=== PATIENT | male | born 1970 | race Native Hawaiian/Other Pacific Islander ===

== ENCOUNTER 2022-01-23 06:58 | Outpatient (CLI) | payer OTHER ==
[~2022-01-23] VITALS: Ht 175.3 cm; Wt 118.2 kg
[~2022-01-23 06:58] MED LIST: ASPIRIN 81M81 MG/TA2 PO; BIKTARVY 50-201 EACH PO; COZAAR 50MG50 MG/TAB PO; NAPROSYN500 MG PO; SMZ/TMPDS PO
[2022-01-23 07:25] VITALS: BP 156/88; PULSE 99; TEMP 97.9
[2022-01-23 08:45] VITALS: BP 126/80; PULSE 92
[2022-01-23 09:00] VITALS: BP 114/74; PULSE 93
[2022-01-23 09:14] LABS: CSF COLOR COLORLESS
[2022-01-23 09:15] VITALS: BP 115/66; PULSE 92
[2022-01-23 09:15] LABS: CSF APPEARANCE CLEAR; CSF RBC 38 /mm3 (0-0)
[2022-01-23 09:30] VITALS: BP 111/77; PULSE 89
[2022-01-23 09:31] LABS: GLUCOSE,CSF 40 mg/dL (40-70); TOTAL PROTEIN,CSF 50 mg/dL (15-45)
[2022-01-23 09:33] LABS: CSF MONONUCLEAR 100 % (70-100); CSF POLYMORPHONUCLEAR 0 % (0-6)
== END 2022-01-23 09:55 | disposition home or self-care (01) ==
LOC: COL.RAD 06:58
PROVIDERS: Internal Medicine Medical Oncology
DX: C83.38 Diffuse large B-cell lymphoma, lymph nodes of multiple sites (principal)

== ENCOUNTER → 2022-03-13 | Outpatient (CLI) | payer OTHER | LOC: COL.RAD 09:51 | DX: C85.90 Non-Hodgkin lymphoma, unspecified, unspecified site (principal) | CPT/HCPCS: Q9967 ==

== ENCOUNTER 2022-03-28 12:59 | Outpatient (CLI) | payer OTHER ==
[~2022-03-28] VITALS: Ht 175.3 cm; Wt 119.2 kg
[2022-03-28 13:26] VITALS: BP 134/82; PULSE 85; TEMP 98.1
[2022-03-28 14:59] VITALS: BP 129/88; PULSE 79
[2022-03-28 15:00] VITALS: BP 108/72; PULSE 77
[2022-03-28 15:30] VITALS: BP 113/76; PULSE 78
[2022-03-28 15:39] LABS: GLUCOSE,CSF 61 mg/dL (40-70); TOTAL PROTEIN,CSF 59 mg/dL (15-45)
[2022-03-28 15:45] VITALS: BP 102/78; PULSE 78
[2022-03-28 16:27] LABS: CSF COLOR COLORLESS
[2022-03-28 16:28] LABS: CSF APPEARANCE CLEAR
[2022-03-28 16:52] LABS: CSF MONONUCLEAR 100 % (70-100); CSF POLYMORPHONUCLEAR 0 % (0-6)
[2022-03-30 08:02] LABS: CSF RBC 0 /mm3 (0-0)
== END 2022-03-28 15:50 | disposition home or self-care (01) ==
LOC: COL.RAD 12:59
PROVIDERS: Internal Medicine Medical Oncology
DX: C83.38 Diffuse large B-cell lymphoma, lymph nodes of multiple sites (principal)

== ENCOUNTER → 2022-03-30 | Outpatient (CLI) | payer OTHER | LOC: COL.RAD 07:53 | DX: C85.90 Non-Hodgkin lymphoma, unspecified, unspecified site (principal) | CPT/HCPCS: Q9967 ==

== ENCOUNTER → 2022-05-21 | Outpatient (CLI) | payer OTHER | LOC: COL.VAS 08:43 | DX: C83.38 Diffuse large B-cell lymphoma, lymph nodes of multiple sites (principal); I34.0 Nonrheumatic mitral (valve) insufficiency ==

== ENCOUNTER → 2022-09-03 | Outpatient (CLI) | payer OTHER ==
[~2022-09-03] MED LIST changes: +BACTRIM DS 8001 TAB PO; +CEPHALEXIN500 M1 PO; +COMPAZINE 110 MG/TAB PO; +FLAGYL500 MG PO; +K-TAB20 PO; +LASIX 20MG TABL20 MG PO; +LEVAQUIN 750MG750 M1 PO; +NORCO 325 MG-51 TAB PO; +PREDNISONE20 MG PO; +ZOVIRAX400 MG PO; +ZYLOPRIM 300MG300 MG PO
== END ==
LOC: COL.RAD 08:28
DX: C83.38 Diffuse large B-cell lymphoma, lymph nodes of multiple sites (principal); M43.8X6 Other specified deforming dorsopathies, lumbar region; M43.8X4 Other specified deforming dorsopathies, thoracic region
CPT/HCPCS: Q9967